=== PATIENT | female | born 2005 | race Two or more races ===

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

== ENCOUNTER 2025-06-14 07:16 | Outpatient (CLI) | payer OTHER | END 2025-06-14 07:25 | disposition home or self-care (01) | LOC: MRI 07:16 | DX: M75.120 Complete rotator cuff tear or rupture of unspecified shoulder, not specified as traumatic (principal) | CPT/HCPCS: 73221 ==